=== PATIENT | female | born 1980 | race American Indian/Alaskan Native ===

== ENCOUNTER 2016-10-08 10:58 | Outpatient (CLI) | payer OTHER ==
[~2016-10-08] VITALS: Ht 177.8 cm; Wt 145.9 kg
[2016-10-08 11:11] VITALS: BP 115/62
[2016-10-08 12:07] LABS: PATH.CAST-FLAG NOT PRESENT; SPERM-FLAG NOT PRESENT; SRC-FLAG NOT PRESENT; XTAL-FLAG NOT PRESENT; YLC-FLAG NOT PRESENT
[2016-10-08 12:43] LABS: BLOOD UREA NITROGEN 8 mg/dL (7-18)
[2016-10-08 12:48] LABS: ASPARTATE AMINO TRANSFERASE 12 U/L (15-37)
[2016-10-08] MEDS ORDERED: MISOPROSTOL 25 MCG TABLET ONE (13:07)
== END 2016-10-08 15:20 | disposition home or self-care (01) ==
LOC: LDOP 10:58
PROVIDERS: ATTEND Obstetrics & Gynecology
DX: O26.893 Other specified pregnancy related conditions, third trimester (principal); O21.9 Vomiting of pregnancy, unspecified; O99.283 Endocrine, nutritional and metabolic diseases complicating pregnancy, third trimester; R42 Dizziness and giddiness; R51 Headache; E07.9 Disorder of thyroid, unspecified; Z3A.31 31 weeks gestation of pregnancy
CPT/HCPCS: 36415; 59025; 80053; 81001; 81003; 82248; 82570; 82731; 84156; 84550; 85025; 87086; 99201; G0463

== ENCOUNTER 2016-12-09 08:04 | Inpatient (IN) | payer OTHER ==
[~2016-12-09] VITALS: Ht 177.8 cm; Wt 150.0 kg
[2016-12-09] MEDS: D5%-LACTATED RINGERS 1,000 ML IV SCH ×2 (08:09→16:09)
[2016-12-09] MEDS ORDERED: AMPICILLIN 2 GM in SODIUM CHLORIDE 0.9% 100 ML IVPB STA (08:09)
[2016-12-09] MEDS ORDERED: OXYTOCIN 30U/ 0.9% NaCL 500ML 500 ML IV PRN (08:09)
[2016-12-09] MEDS ORDERED: CALCIUM CARBONATE 500 MG TAB.CHEW PO PRN (08:30)
[2016-12-09] MEDS ORDERED: PLEASE ENTER HEIGHT AND WEIGHT MC SCH (08:30)
[2016-12-09] MEDS ORDERED: FENTANYL PF 100 MCG/2ML IVPush PRN (08:30)
[2016-12-09] MEDS ORDERED: ONDANSETRON 2MG/ML, 2ML IVPush PRN (08:30)
[2016-12-09] MEDS ORDERED: MISOPROSTOL 25 MCG TABLET VG PRN (08:30)
[2016-12-09 08:49] LABS: ASPARTATE AMINO TRANSFERASE 13 U/L (15-37); BLOOD UREA NITROGEN 9 mg/dL (7-18)
[2016-12-09] MEDS ORDERED: MISOPROSTOL 200 MCG TABLET ONE (09:08)
[2016-12-09] MEDS ORDERED: OXYTOCIN 30U/ 0.9% NaCL 500ML 500 ML ONE (09:08)
[2016-12-09] MEDS ORDERED: NEWBORN KIT ONE (09:08)
[2016-12-09] MEDS ORDERED: LIDOCAINE 1%, 20ML ONE ×2 (09:08→20:15)
[2016-12-09] MEDS: LACTATED RINGERS 1,000 ML IV SCH ×4 (09:12→21:18)
[2016-12-09] MEDS ORDERED: ACETAMINOPHEN 325 MG TABLET ONE ×2 (09:22→21:40)
[2016-12-09] MEDS: ACETAMINOPHEN 325 MG TABLET PO PRN ×2 (09:25→21:45)
[2016-12-09] MEDS ORDERED: PREN1TAB25 PO (09:53)
[2016-12-09] MEDS ORDERED: LEVO200T PO (09:53)
[2016-12-09 10:19] VITALS: BP 132/72
[2016-12-09] MEDS: AMPICILLIN 1 GM in SODIUM CHLORIDE 0.9% 50 ML IVPB SCH ×3 (13:15→21:18)
[2016-12-09] MEDS ORDERED: FENTANYL PF 100 MCG/2ML ONE (17:56)
[2016-12-09] MEDS ORDERED: FENTANYL/BUPIV./NS/PF 250 ML EPIDCONT ONE ×2 (20:11→20:15)
[2016-12-09] MEDS ORDERED: EPHEDRINE 50 MG/ML, 1ML ONE (20:15)
[2016-12-09] MEDS ORDERED: BUPIVACAINE 0.25% ONE (20:15)
[2016-12-09] MEDS ORDERED: LIDOCAINE/PF 1.5%-EPI 1:200K, 30ML ONE (20:15)
[2016-12-09] MEDS ORDERED: ACETAMINOPHEN 325 MG TABLET PO PRN (22:00)
[2016-12-10] MEDS: D5%-LACTATED RINGERS 1,000 ML IV SCH ×2 (00:09→08:09)
[2016-12-10] MEDS: AMPICILLIN 1 GM in SODIUM CHLORIDE 0.9% 50 ML IVPB SCH ×3 (01:27→08:30)
[2016-12-10] MEDS ORDERED: ONDANSETRON 2MG/ML, 2ML ONE (01:28)
[2016-12-10] MEDS ORDERED: OXYTOCIN 30U/ 0.9% NaCL 500ML 500 ML ONE ×2 (06:03→06:45)
[2016-12-10] MEDS: LACTATED RINGERS 1,000 ML IV SCH (06:17)
[2016-12-10] MEDS: OXYTOCIN 30U/ 0.9% NaCL 500ML 500 ML IV SCH ×2 (06:17→16:01)
[2016-12-10] MEDS ORDERED: ONDANSETRON 2MG/ML, 2ML IV PRN (06:30)
[2016-12-10] MEDS ORDERED: MISOPROSTOL 200 MCG TABLET PR PRN (06:30)
[2016-12-10] MEDS ORDERED: CARBOPROST TROMETHAMINE 250 MCG/ML, 1ML IM PRN (06:30)
[2016-12-10] MEDS ORDERED: OXYcodone/APAP 5/325MG TABLET PO PRN (06:30)
[2016-12-10] MEDS ORDERED: ACETAMINOPHEN 325 MG TABLET PO PRN (06:30)
[2016-12-10] MEDS ORDERED: METHYLERGONOVINE 0.2 MG/ML IM PRN (06:30)
[2016-12-10] MEDS ORDERED: OXYTOCIN 10 UNITS/ML, 1ML IM PRN (06:30)
[2016-12-10] MEDS ORDERED: FENTANYL/BUPIV./NS/PF 250 ML EPIDCONT SCH (07:09)
[2016-12-10] MEDS ORDERED: LACTATED RINGERS 1,000 ML IV SCH (07:09)
[2016-12-10] MEDS ORDERED: LACTATED RINGERS 1,000 ML IVBOLUS PRN (07:30)
[2016-12-10] MEDS ORDERED: IBUPROFEN 600 MG TABLET ONE (08:15)
[2016-12-10] MEDS: IBUPROFEN 600 MG TABLET PO PRN ×2 (08:20→16:29)
[2016-12-10] MEDS: PRENATAL VIT/IRON/FA 1 EACH TABLET PO SCH (09:00)
[2016-12-10 10:26] VITALS: BP 105/61
[2016-12-10 13:28] VITALS: BP 117/74
[2016-12-10 16:30] VITALS: BP 108/70
[2016-12-10 19:32] VITALS: BP 121/63
[2016-12-10] MEDS: OXYcodone/APAP 5/325MG TABLET PO PRN (20:44)
[2016-12-11] MEDS: LACTATED RINGERS 1,000 ML IV SCH ×2 (00:09→08:09)
[2016-12-11 00:30] VITALS: BP 131/84
[2016-12-11] MEDS: IBUPROFEN 600 MG TABLET PO PRN ×2 (00:36→09:00)
[2016-12-11] MEDS: OXYcodone/APAP 5/325MG TABLET PO PRN ×3 (00:36→09:00)
[2016-12-11] MEDS: OXYTOCIN 30U/ 0.9% NaCL 500ML 500 ML IV SCH (02:01)
[2016-12-11 04:45] VITALS: BP 103/61
[2016-12-11 08:10] VITALS: BP 102/63
[2016-12-11] MEDS: PRENATAL VIT/IRON/FA 1 EACH TABLET PO SCH (08:59)
[2016-12-11] MEDS: DOCUSATE 100 MG CAPSULE PO PRN ×2 (08:59→19:50)
[2016-12-11] MEDS: LEVOTHYROXINE 200 MCG TABLET PO SCH (11:15)
[2016-12-11] MEDS: ONDANSETRON ODT 4 MG PO PRN ×2 (15:27→21:26)
[2016-12-11 19:35] VITALS: BP 133/81
[2016-12-11] MEDS ORDERED: DIPH,PERTUSS(ACELL),TET VAC/PF NC IM-VACC ONE (20:00)
[2016-12-12] MEDS: IBUPROFEN 600 MG TABLET PO PRN ×2 (01:42→08:15)
[2016-12-12] MEDS: LEVOTHYROXINE 200 MCG TABLET PO SCH (05:36)
[2016-12-12] MEDS: PRENATAL VIT/IRON/FA 1 EACH TABLET PO SCH (08:14)
[2016-12-12 08:15] VITALS: BP 119/70
[2016-12-12] MEDS: DOCUSATE 100 MG CAPSULE PO PRN (08:15)
[2016-12-12] MEDS: ONDANSETRON ODT 4 MG PO PRN (10:49)
[2016-12-12] MEDS ORDERED: OXYC-302 PO (14:06)
[2016-12-12] MEDS ORDERED: IBUP-1222 PO (14:07)
[2016-12-12] MEDS ORDERED: SENN8.6T4 PO (14:09)
== END 2016-12-12 15:51 | disposition home or self-care (01) | DRG 775 ==
LOC: LDIP 08:04 → 2NW 12-10 08:41
PROVIDERS: ADMIT Obstetrics & Gynecology; ATTEND Obstetrics & Gynecology
PROC: 10E0XZZ Delivery of Products of Conception, External Approach (ICD-10-PCS; principal; 2016-12-10)
PROC: 0KQM0ZZ Repair Perineum Muscle, Open Approach (ICD-10-PCS; 2016-12-10)
PROC: 3E033VJ Introduction of Other Hormone into Peripheral Vein, Percutaneous Approach (ICD-10-PCS; 2016-12-10)
PROC: 10907ZC Drainage of Amniotic Fluid, Therapeutic from Products of Conception, Via Natural or Artificial Opening (ICD-10-PCS; 2016-12-10)
PROC: 00HU33Z Insertion of Infusion Device into Spinal Canal, Percutaneous Approach (ICD-10-PCS; 2016-12-10)
PROC: 3E0R3CZ (ICD-10-PCS; 2016-12-10)
DX: O13.3 Gestational [pregnancy-induced] hypertension without significant proteinuria, third trimester (principal); Z68.42 Body mass index [BMI] 45.0-49.9, adult; Z37.0 Single live birth; O99.214 Obesity complicating childbirth; E66.9 Obesity, unspecified; O99.284 Endocrine, nutritional and metabolic diseases complicating childbirth; E03.9 Hypothyroidism, unspecified; O99.824 Streptococcus B carrier state complicating childbirth; Z3A.39 39 weeks gestation of pregnancy; O70.1 Second degree perineal laceration during delivery
CPT/HCPCS: 36415; 80053; 81001; 82803; 84550; 85025; 86592; 86850; 86900; 88307; 90715; J0290; J2405; J3010; J3490; Q0162; J2590; J7120